=== PATIENT | female | born 1960 | race Caucasian/White ===

== ENCOUNTER 2016-10-15 16:13 | Emergency (ER) | payer SELFPAY ==
[~2016-10-15] VITALS: Ht 160 cm; Wt 58.1 kg
[2016-10-15 22:28] VITALS: BP 117/76
== END 2016-10-15 22:27 | disposition home or self-care (01) ==
LOC: EMS 16:17
DX: T51.91XA Toxic effect of unspecified alcohol, accidental (unintentional), initial encounter (principal); F11.90 Opioid use, unspecified, uncomplicated; F17.210 Nicotine dependence, cigarettes, uncomplicated; Y92.89 Other specified places as the place of occurrence of the external cause
CPT/HCPCS: 99283

== ENCOUNTER 2024-04-15 11:18 | Emergency (ER) | payer OTHER ==
[~2024-04-15] VITALS: Ht 154.9 cm; Wt 70.5 kg
[2024-04-15 11:30] VITALS: TEMP 98.2
[2024-04-15] MEDS: MethylPREDNISolone SOD SUCC 125 MG/2 ML VIAL IVP ONE (11:43)
[2024-04-15] MEDS: IPRATROPIUM BROMIDE 0.5 MG/2.5 ML NEB SOLUTION NEB ONE (11:48)
[2024-04-15] MEDS: ALBUTEROL SULFATE 2.5 MG/0.5 ML NEB SOLUTION NEB ONE (11:48)
[2024-04-15 11:49] VITALS: PULSE 86; RESP 18; O2SAT 96
[2024-04-15 11:50] VITALS: PULSE 86; RESP 18; O2SAT 96
[2024-04-15 11:56] LABS: COVID AG,FIA SOURCE NASAL SWAB
[2024-04-15 12:06] LABS: BASOPHILS % (AUTO) 0.9 % (0.0-2.0); EOSINOPHILS % (AUTO) 0.6 % (1.0-6.0); HEMOGLOBIN 11.6 g/dL (12.0-16.0); LYMPHOCYTES # (AUTO) 2.4 K/uL (1.0-4.8); LYMPHOCYTES % (AUTO) 47.4 % (22.0-44.0); MEAN CORPUSCULAR HEMOGLOBIN 29.4 pg (26.0-34.0); MEAN CORPUSCULAR HGB CONC 32.1 G/dL (31.0-37.0); MEAN CORPUSCULAR VOLUME 92 fL (80-100); MONOCYTES % (AUTO) 18.9 % (2.0-9.0); NEUTROPHILS # (AUTO) 1.6 K/uL (1.8-7.7); NEUTROPHILS % (AUTO) 32.2 % (40.0-70.0); PLATELET COUNT (AUTO) 204 K/uL (150-450); RED BLOOD CELL COUNT(AUTO) 3.94 MIL/uL (4.00-5.20); RED CELL DISTRIBUTION WIDTH 16.9 % (11.5-14.5); WHITE BLOOD COUNT (AUTO) 5.1 K/uL (4.5-11.0)
[2024-04-15 12:07] LABS: CALCIUM, TOTAL 7.6 mg/dL (8.8-10.5); CREATININE 0.97 mg/dL (0.60-1.30); POTASSIUM 3.3 mmol/L (3.5-5.1)
[2024-04-15 12:17] LABS: INFLUENZA TYPE A NEGATIVE FOR TYPE A (NEGATIVE); INFLUENZA TYPE B NEGATIVE FOR TYPE B (NEGATIVE)
[2024-04-15 12:17] LABS: TROPONIN I-HIGH SENSITIVITY 9 ng/L (<51)
[2024-04-15 13:01] LABS: SARS-COV2 (COVID) ANTIGEN,FIA Positive (Negative)
[2024-04-15 13:36] VITALS: BP 131/71; PULSE 101; RESP 18
[2024-04-15] MEDS ORDERED: PRED-554 PO (13:58)
[2024-04-15] MEDS: POTASSIUM CHLORIDE 20 MEQ ER TABLET PO ONE (14:08)
[2024-04-15] MEDS: IBUPROFEN 600 MG TABLET PO ONE (14:08)
== END 2024-04-15 14:20 | disposition home or self-care (01) ==
LOC: EMS 11:19
DX: U07.1 COVID-19 (principal); J44.9 Chronic obstructive pulmonary disease, unspecified; R06.02 Shortness of breath; E87.6 Hypokalemia; F17.210 Nicotine dependence, cigarettes, uncomplicated
CPT/HCPCS: 99285; 96374; 71045; 87426; 80048; 83880; 84484; 85025; 87804; 36415; 94640; 93005; J2919; J7613